=== PATIENT | male | born 1955 | race Caucasian/White ===

== ENCOUNTER 2021-06-27 09:46 | Inpatient (IN) ==
[2021-06-27] MEDS ORDERED: 0.9 % SODIUM CHLORIDE 1,000 ML IV ONE ×2 (10:02)
--- NOTE | 2021-06-27 10:19 | Emergency Department Note ---
HPI General Chief complaint: Weakness Stated complaint: weakness and confision Time Seen by Provider: 06/27/21 09:54 Source: patient Mode of arrival: wheelchair Limitations: no limitations History of Present Illness HPI Narrative: Patient is a 65-year-old gentleman who arrives the emergency department by private vehicle accompanied by his complaining of confusion. History is provided by the with some supplemental information from the patient and is somewhat limited due to the patient's mental status. Patient's notes that he has been increasingly confused since yesterday. This was gradual in onset has been progressively worsening. He has had similar symptoms in the past due to hepatic encephalopathy. The patient's notes that he has been taking his medications as prescribed and had 2 bowel movements yesterday after taking lactulose. This morning, he was too confused to take his me dications so she brought him in for. Nothing seems to make the symptoms any better or worse. Related Data Home Medications Medication Instructions Recorded Confirmed multivitamin 1 tab PO QAM 11/23/20 05/16/21 dorzolamide 22.3 mg-timolol 6.8 ml OPHTHALMIC (EYE) QDAY ml 02/22/21 05/16/21 mg/mL eye drops omeprazole 20 mg capsule,delayed 20 mg PO BID cap 02/22/21 05/16/21 release prednisolone acetate 1 % eye 1 drp OPHTHALMIC (EYE) BID ml 02/22/21 05/16/21 drops,suspension lactulose 10 gram/15 mL oral 15 ml PO TID ml 05/16/21 05/16/21 solution Previous Rx's Medication Instructions Recorded nitroglycerin 0.4 mg sublingual 0.4 mg SUBLINGUAL Q5MIN PRN #30 tab 09/30/19 tablet ondansetron HCl 4 mg tablet 4 mg PO Q6H PRN #30 tab 06/12/21 Allergies Allergy/AdvReac Type Severity Reaction Status Date / Time No Known Drug Allergies Allergy Verified 05/28/21 13:14 Review of Systems ROS ROS Narrative: Narrative: Limitations: ROS unobtainable due to patients medical condition PFSH Narrative Patient History Narrative: Narrative: Medical/Surgical/Family History All Active Problems (Updated 06/27/21 @ 13:59 by Jb Coyne DO) Encephalopathy, hepatic (Acute) Abnormal laboratory test (Acute) S/P TIPS (transjugular intrahepatic portosystemic shunt) (Acute) Alcoholic cirrhosis of liver (Acute) Encounter for removal of sutures (Acute) CAD (coronary artery disease) (Chronic) Hyperlipidemia (Chronic) Lupus (systemic lupus erythematosus) (Acute) Renal cyst (Chronic 02/02/15) Renal mass (Chronic 12/18/14) Skin disorder (Chronic) Vitamin D deficiency (Chronic 02/02/15) Encounter for long-term (current) use of high-risk medication (Acute) Polyarthralgia (Acute) Hypoalbuminemia (Chronic) Nausea (Acute) Weight loss (Acute) Lower extremity weakness (Acute ~03/2020) Fall (Acute) Bilateral lower extremity edema (Chronic) Malnutrition (Acute) Elevated liver enzymes (Acute) Elevated liver enzymes (Chronic) Ascites (Acute) Acute renal failure (Acute) Hypotension (Chronic) Elevated brain natriuretic peptide (BNP) level (Acute) Sacroiliac strain (Acute) Medicare annual wellness visit, initial (Acute) Poor appetite (Chronic) Cachexia (Acute) Viral gastroenteritis (Acute) Anemia (Acute) End-stage liver disease (Acute) CKD stage G4/A1, GFR 15-29 and albumin creatinine ratio <30 mg/g (Chronic) Meralgia paresthetica of right side (Acute) Nausea & vomiting (Acute) Ascites (Acute) Acute prerenal azotemia (Acute) CKD (chronic kidney disease) (Acute) Incarcerated hernia (Acute) SBO (small bowel obstruction) (Acute) Chronic liver failure (Acute) Incarcerated umbilical hernia (Acute) CKD stage G3b/A1, GFR 30-44 and albumin creatinine ratio <30 mg/g (Acute) Electrolyte abnormality (Acute) Medical History Alcoholic cirrhosis of liver Bilateral lower extremity edema Improved with serial paracentesis Cachexia CAD (coronary artery disease) 2012 two stents inserted Chest pain CKD (chronic kidney disease) Contusion Elevated liver enzymes Elevated liver enzymes Seems limited to the alkaline phosphatase. 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 must admit this is not the typical presentation of advanced liver disease. SAAG is 1.9, echo is preserved LV function and no restrictive physiology, cytology is negative on the ascites fluid, therefore I believe this to be ascites due to portal hypertension. Holding diuretics due to the worsening GFR which seems to have leveled off at around 20 to 25 cc/min Hypokalemia Either due to cirrhotic physiology or drug-induced from loop diuretics Incarcerated umbilical hernia Lower extremity weakness (~03/2020) Proximal lower extremity weakness- Lupus (systemic lupus erythematosus) Cutaneous manifestations mostly Malnutrition Medicare annual wellness visit, initial Meralgia paresthetica of right side Nausea Polyarthralgia Poor appetite Trial of Reglan by PCP Premier protein supplements suggested Rash and nonspecific skin eruption Renal cyst (02/02/15) per ultrasound Renal mass (12/18/14) Rhabdomyolysis (02/02/15) Shoulder strain Skin disorder Stasis dermatitis of both legs Vitamin D deficiency (02/02/15) Weight loss Surgical History H/O knee surgery Repair Left knee H/O varicose vein ligation and stripping History of esophagogastroduodenoscopy (~11/11/19) Dr. Moran History of umbilical hernia repair (02/02/21) Hx of right coronary artery stent placement Drug coated stents placed in right coronary artery S/P colonoscopy (11/11/19) TA; 10/31/16; 02/27/17 S/P TIPS (transjugular intrahepatic portosystemic shunt) Family History Mother Osteoarthritis Social History Smoking Status: Current some day smoker Alcohol Intake Frequency: former alcohol drinker Substance Use: former substance user Exam Narrative Narrative: I reviewed the vital signs. Gen -patient is drowsy and arousable to brisk verbal stimuli and in no acute distress. He appears quite cachectic HEENT -head is atraumatic. There is no conjunctival pallor or scleral icterus. Mucous membranes are dry CV -S1-S2 regular rate and rhythm. Peripheral pulses are palpable. There is no JVD. Resp -breathing is nonlabored. Lungs are clear to auscultation bilaterally. There is no cyanosis. GI - Abdomen is soft and nontender to palpation. There is no guarding or rebound tenderness. Derm -skin is warm and dry. There is no visible rash. MSK -present extremities are atraumatic. Psych - the patient does not appear internally stimulated. Neuro -patient provides simple and slightly confused answers to questions. He is oriented to person and situation but disoriented to the year. He does not follow commands consistently. Patient moves all present extremities equally. General Limitations: no limitations Course Vital Signs Vital signs: Vital Signs Temperature 97.8 F 06/27/21 09:47 Pulse Rate 59 L 06/27/21 09:47 Respiratory Rate 16 06/27/21 09:47 Blood Pressure 127/68 06/27/21 09:47 Pulse Oximetry (%) 100 06/27/21 09:47 Temperature 97.8 F 06/27/21 09:47 Pulse Rate 72 06/27/21 13:46 Respiratory Rate 15 06/27/21 13:46 Blood Pressure 136/88 06/27/21 13:46 Pulse Oximetry (%) 100 06/27/21 13:46 [facility] Narrative Medical decision making narrative: Patient presents with altered mental status. He has no focal neurologic deficits to suggest an acute ischemic stroke. Labs are remarkable for no significant electrolyte or hematologic derangements. CT scan does not reveal any intracranial hemorrhage. Patient does have a known history of hepatic encephalopathy and his symptoms seem consistent with this. I personally performed interpreted limited bedside ultrasound of the patient's abdomen. There is no significant free intraperitoneal fluid would be amenable to paracentesis. Given this lack of leukocytosis and lack of fever I do not think the patient has spontaneous bacterial peritonitis. I discussed the test results with the patient and his and recommended admission for further treatment of his hepatic encephalopathy and they are agreeable. I discussed the patient's history examination and diagnostic findings with Dr. Cristobal, who agrees with the plan of care and accepts admission. Lab Data Lab results reviewed: Yes I reviewed the patient's lab results. Result diagrams: 06/27/21 10:03 06/27/21 10:03 Labs: Lab Results 06/27/21 06/27/21 06/27/21 Range/Units 09:56 10:03 10:03 WBC 7.8 (4.5-11.0) K/mcL RBC 3.35 L (4.63-6.08) M/mcL Hgb 10.7 L (13.7-17.5) g/dL Hct 31.8 L (40.1-51.0) % MCV 94.9 (80.0-100.0) fL MCH 31.9 (26.0-34.0) pg MCHC 33.6 (31.0-36.0) g/dL RDW 12.7 (11.5-14.5) % Plt Count 276 (140-440) K/mcL MPV 9.7 (7.4-10.4) fL Neut % (Auto) 59.0 (38.0-78.0) % Lymph % (Auto) 29.2 (15.5-49.0) % Mason % (Auto) 6.5 (1.0-12.0) % Eos % (Auto) 4.3 (0.0-7.0) % Baso % (Auto) 1.0 (0.0-2.0) % Lymph # (Auto) 2.29 (1.50-4.80) K/mcL Mason # (Auto) 0.51 (0.10-0.90) K/mcL Eos # (Auto) 0.34 (0.00-0.70) K/mcL Baso # (Auto) 0.08 (0.00-0.30) K/mcL Absolute Neutrophils 4.61 (1.80-8.00) K/mcL PT 13.2 (11.9-14.5) sec INR 1.0 (0.9-1.1) Sodium (133-145) mmol/L Potassium (3.3-5.1) mmol/L Chloride (96-108) mmol/L Carbon Dioxide (22-30) mmol/L Anion Gap (8.0-16.0) BUN (8-23) mg/dL Creatinine (0.7-1.2) mg/dL GFR Calculation Glucose (70-105) mg/dL Calcium (8.6-10.4) mg/dL Total Bilirubin (0.1-1.0) mg/dL AST (<40) U/L ALT (<40) U/L Alkaline Phosphatase (39-117) U/L Ammonia (16-60) umol/L Total Protein (5.9-8.4) gm/dL Albumin (3.2-5.2) gm/dL Globulin (2.2-3.7) gm/dL Albumin/Globulin Ratio (1.0-2.3) Urine Color Urine Appearance (Clear) Urine pH (5.0-9.0) Ur Specific [place] (1.000-1.035) Urine Protein (Negative) mg/dL Urine Glucose (UA) (Negative) mg/dL Urine Ketones (Negative) mg/dL Urine Occult Blood (Negative) shayy/mcL Urine Nitrate (Negative) Urine Bilirubin (Negative) mg/dL Urine Urobilinogen mg/dL Ur Leukocyte Esterase (Negative) /uL Ur Culture Indicated? Ethyl Alcohol < 0.010 (<0.010) gm/dL 06/27/21 06/27/21 06/27/21 Range/Units 10:03 11:08 11:30 WBC (4.5-11.0) K/mcL RBC (4.63-6.08) M/mcL Hgb (13.7-17.5) g/dL Hct (40.1-51.0) % MCV (80.0-100.0) fL MCH (26.0-34.0) pg MCHC (31.0-36.0) g/dL RDW (11.5-14.5) % Plt Count (140-440) K/mcL MPV (7.4-10.4) fL Neut % (Auto) (38.0-78.0) % Lymph % (Auto) (15.5-49.0) % Mason % (Auto) (1.0-12.0) % Eos % (Auto) (0.0-7.0) % Baso % (Auto) (0.0-2.0) % Lymph # (Auto) (1.50-4.80) K/mcL Mason # (Auto) (0.10-0.90) K/mcL Eos # (Auto) (0.00-0.70) K/mcL Baso # (Auto) (0.00-0.30) K/mcL Absolute Neutrophils (1.80-8.00) K/mcL PT (11.9-14.5) sec INR (0.9-1.1) Sodium 133 (133-145) mmol/L Potassium 4.5 (3.3-5.1) mmol/L Chloride 103 (96-108) mmol/L Carbon Dioxide 17 L (22-30) mmol/L Anion Gap 13.0 (8.0-16.0) BUN 54 H (8-23) mg/dL Creatinine 1.4 H (0.7-1.2) mg/dL GFR Calculation 51 Glucose 118 H (70-105) mg/dL Calcium 9.6 (8.6-10.4) mg/dL Total Bilirubin 0.2 (0.1-1.0) mg/dL AST 28 (<40) U/L ALT 28 (<40) U/L Alkaline Phosphatase 87 (39-117) U/L Ammonia 179 H (16-60) umol/L Total Protein 7.2 (5.9-8.4) gm/dL Albumin 3.9 (3.2-5.2) gm/dL Globulin 3.3 (2.2-3.7) gm/dL Albumin/Globulin Ratio 1.2 (1.0-2.3) Urine Color Yellow Urine Appearance Clear (Clear) Urine pH 6.5 (5.0-9.0) Ur Specific [place] 1.020 (1.000-1.035) Urine Protein Negative (Negative) mg/dL Urine Glucose (UA) Negative (Negative) mg/dL Urine Ketones Trace A (Negative) mg/dL Urine Occult Blood Negative (Negative) shayy/mcL Urine Nitrate Negative (Negative) Urine Bilirubin Negative (Negative) mg/dL Urine Urobilinogen Normal mg/dL Ur Leukocyte Esterase Negative (Negative) /uL Ur Culture Indicated? No Ethyl Alcohol (<0.010) gm/dL ED POC Tests ED POC Tests: PHILIPPE - SARS Antigen Negative EKG Data EKG #1: EKG attestation: Yes I reviewed and interpreted this EKG. EKG results narrative: EKG performed at 10:15 AM: Sinus rhythm, rate 59. Normal P wave and QRS morphology. T waves appear diffusely peaked. No ST segment deviation. Normal [place] QRS and QTc duration. No old EKG immediately available for comparison. EKG was interpreted by me. 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/PA only: No Clinical Impression: Encephalopathy, hepatic Patient Disposition: Xfer As Inpt ([facility]) Follow up with: Marco Harper MD [Primary Care Provider] - Prescriptions: No Action nitroglycerin 0.4 mg tablet, sublingual 0.4 mg SUBLINGUAL Q5MIN PRN (Reason: chest pain) Qty: 30 RF: 3 ondansetron HCl [Zofran] 4 mg tablet 4 mg PO Q6H PRN (Reason: nausea and vomiting) Qty: 30 RF: 0 omeprazole 20 mg capsule,delayed release(DR/EC) 20 mg PO BID RF: 0 lactulose 10 gram/15 mL solution 15 ml PO TID RF: 0 multivitamin Tablet 1 tab PO QAM RF: 0 prednisolone acetate 1 % drops,suspension 1 drp ophthalmic (eye) BID RF: 0 dorzolamide-timolol 22.3-6.8 mg/mL drops ophthalmic (eye) QDAY RF: 0
--- NOTE | 2021-06-27 10:34 | XRay Report ---
HISTORY: Pneumonia, increased weakness and confusion FINDINGS: The lungs are clear without evidence of pneumonia or air trapping. There is a stable small parenchymal scar above the left diaphragm. The heart size and pulmonary vascular normal. The mediastinum and hilar normal. There are old fractures posterolaterally in the right sixth and posteriorly and left seventh ribs. There has been no change since 05/28/21. IMPRESSION: No evidence of pneumonia or acute abnormality Interpreted and Authenticated by: Preston Fuentes 06/27/21
--- NOTE | 2021-06-27 10:53 | Cat Scan Report ---
History: Increased weakness and confusion, evaluate for subdural hematoma TECHNIQUE: The brain was imaged without contrast in axial plane at 2.5 mm intervals. FINDINGS: There is no intracranial hemorrhage or subdural fluid collection. Mild generalized cerebral atrophy is present. The ventricles are prominent but proportionate to the atrophy. There is asymmetric dilatation of the frontal horn of the right lateral ventricle due to an old infarct in the adjacent anterior aspect of the right davis radiata. Measures approximately 1 cm in size. There is another smaller old infarct along the inferior border of the right thalamus near the hypothalamus. It measures 5 mm. Patchy areas of decreased attenuation are present in the centrum semiovale in the frontal and parietal lobes bilaterally. No cortical infarct is detected. There is an implant in the right orbit, superior and lateral to the globe in the general location of the lacrimal gland. 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 No subdural hematoma or evidence of acute abnormality Age-related degenerative changes Dr. Coyne was called with the report Interpreted and Authenticated by: Preston Fuentes 06/27/21
[2021-06-27 11:00] LABS: Basophils # (Auto) 0.08 K/mcL (0.00-0.30); Eosinophils # (Auto) 0.34 K/mcL (0.00-0.70); Eosinophils % (Auto) 4.3 % (0.0-7.0); Hematocrit 31.8 % (40.1-51.0); Hemoglobin 10.7 g/dL (13.7-17.5); Lymphocytes # (Auto) 2.29 K/mcL (1.50-4.80); Lymphocytes % (Auto) 29.2 % (15.5-49.0); Mean Cell Volume 94.9 fL (80.0-100.0); Mean Corpuscular HGB Conc 33.6 g/dL (31.0-36.0); Mean Platelet Volume 9.7 fL (7.4-10.4); Monocytes # (Auto) 0.51 K/mcL (0.10-0.90); Monocytes % (Auto) 6.5 % (1.0-12.0); Platelet Count 276 K/mcL (140-440); RBC 3.35 M/mcL (4.63-6.08); Red Cell Distribution Width 12.7 % (11.5-14.5); WBC 7.8 K/mcL (4.5-11.0)
[2021-06-27 11:22] LABS: Alcohol, Blood < 10.0 mg/dL; Alcohol,Blood < 0.010 gm/dL (<0.010)
[2021-06-27 11:24] LABS: ALT/SGPT 28 U/L (<40); AST/SGOT 28 U/L (<40); Albumin 3.9 gm/dL (3.2-5.2); Albumin/Globulin Ratio 1.2 (1.0-2.3); Alkaline Phosphatase 87 U/L (39-117); Bilirubin,Total 0.2 mg/dL (0.1-1.0); Blood Urea Nitrogen 54 mg/dL (8-23); Calcium 9.6 mg/dL (8.6-10.4); Carbon Dioxide 17 mmol/L (22-30); Chloride 103 mmol/L (96-108); Globulin 3.3 gm/dL (2.2-3.7); Glomerular Filtration Rate 51; Glucose 118 mg/dL (70-105); Prothrombin Time 13.2 sec (11.9-14.5)
[2021-06-27 13:20] LABS: Appearance,Urine Clear (Clear); Bilirubin,Urine Negative (Negative); Color,Urine Yellow; Culture Indicated,Urine No; Glucose,Urine (UA) Negative (Negative); Ketones,Urine Trace mg/dL (Negative); Leukocyte Esterase,Urine Negative /uL (Negative); Nitrate,Urine Negative (Negative); PH,Urine 6.5 (5.0-9.0); Protein,Urine Negative (Negative); Urine Blood Negative ery/mcL (Negative); Urobilinogen,Urine Normal
[2021-06-27] MEDS ORDERED: LACTULOSE 20 GM/30 ML ORAL.SOL PO ONE (13:25)
[2021-06-27] MEDS ORDERED: HALOPERIDOL LACTATE 5 MG/ML VIAL IV PRN ×3 (14:28→19:09)
--- NOTE | 2021-06-27 14:28 | Internal Med History&Physical ---
HPI History of Present Illness Patient information: Note initiated : 06/27/21 at 2:25 pm Service Date, if different from initiated Date: [] Patient: Jermaine Kruger a 65 y/o M admitted on for weakness and confision. Chief Complaint: [hepatic encephalopathy] History of present illness: Mr. Kruger is a 65 year old M history of cirrhosis, chronic kidney disease stage III, presenting with 3-day history of altered mental status. According to the who lives with the patient and who is the career and transition teacher, patient has been increasingly somnolent, confused, altered mental status over the past 3 days, especially today. Today he was so confused and we ak to the point that he could not even get out of bed or take any medications. As a result, she called EMS to send patient to our ER for further evaluation and treatments. History limited by patient's clinical situation as well as the absence of family at bedside. Vital signs within normal limits and patient has been afebrile. Labs significant for lack of leukocytosis with WBC 7.8. Serum creatinine level 1.4, at around his baseline. Serum ammonia level 179, increased from 137 a month ago. Urine analysis does not suggest the presence of urinary tract infections. Chest x-ray was clear no sign of pneumonia or any other intrathoracic pathologies. CT head without contrast showed no acute intracranial changes. Review of Systems ROS unobtainable: due to mental status PFSH PFSH All Active Problems (Updated 06/27/21 @ 14:30 by Vernon Cristobal MD) Anemia of chronic renal failure, stage 3 (moderate) (Acute) Encephalopathy, hepatic (Acute) Abnormal laboratory test (Acute) S/P TIPS (transjugular intrahepatic portosystemic shunt) (Acute) Alcoholic cirrhosis of liver (Acute) Encounter for removal of sutures (Acute) CAD (coronary artery disease) (Chronic) Hyperlipidemia (Chronic) Lupus (systemic lupus erythematosus) (Acute) Renal cyst (Chronic 02/02/15) Renal mass (Chronic 12/18/14) Skin disorder (Chronic) Vitamin D deficiency (Chronic 02/02/15) Encounter for long-term (current) use of high-risk medication (Acute) Polyarthralgia (Acute) Hypoalbuminemia (Chronic) Nausea (Acute) Weight loss (Acute) Lower extremity weakness (Acute ~03/2020) Fall (Acute) Bilateral lower extremity edema (Chronic) Malnutrition (Acute) Elevated liver enzymes (Acute) Elevated liver enzymes (Chronic) Ascites (Acute) Acute renal failure (Acute) Hypotension (Chronic) Elevated brain natriuretic peptide (BNP) level (Acute) Sacroiliac strain (Acute) Medicare annual wellness visit, initial (Acute) Poor appetite (Chronic) Cachexia (Acute) Viral gastroenteritis (Acute) Anemia (Acute) End-stage liver disease (Acute) CKD stage G4/A1, GFR 15-29 and albumin creatinine ratio <30 mg/g (Chronic) Meralgia paresthetica of right side (Acute) Nausea & vomiting (Acute) Ascites (Acute) Acute prerenal azotemia (Acute) CKD (chronic kidney disease) (Acute) Incarcerated hernia (Acute) SBO (small bowel obstruction) (Acute) Chronic liver failure (Acute) Incarcerated umbilical hernia (Acute) CKD stage G3b/A1, GFR 30-44 and albumin creatinine ratio <30 mg/g (Acute) Electrolyte abnormality (Acute) Medical History Alcoholic cirrhosis of liver Bilateral lower extremity edema Improved with serial paracentesis Cachexia CAD (coronary artery disease) 2012 two stents inserted Chest pain CKD (chronic kidney disease) Contusion Elevated liver enzymes Elevated liver enzymes Seems limited to the alkaline phosphatase. 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 must admit this is not the typical presentation of advanced liver disease. SAAG is 1.9, echo is preserved LV function and no restrictive physiology, cytology is negative on the ascites fluid, therefore I believe this to be ascites due to portal hypertension. Holding diuretics due to the worsening GFR which seems to have leveled off at around 20 to 25 cc/min Hypokalemia Either due to cirrhotic physiology or drug-induced from loop diuretics Incarcerated umbilical hernia Lower extremity weakness (~03/2020) Proximal lower extremity weakness- Lupus (systemic lupus erythematosus) Cutaneous manifestations mostly Malnutrition Medicare annual wellness visit, initial Meralgia paresthetica of right side Nausea Polyarthralgia Poor appetite Trial of Reglan by PCP Premier protein supplements suggested Rash and nonspecific skin eruption Renal cyst (02/02/15) per ultrasound Renal mass (12/18/14) Rhabdomyolysis (02/02/15) Shoulder strain Skin disorder Stasis dermatitis of both legs Vitamin D deficiency (02/02/15) Weight loss Surgical History H/O knee surgery Repair Left knee H/O varicose vein ligation and stripping History of esophagogastroduodenoscopy (~11/11/19) Dr. Moran History of umbilical hernia repair (02/02/21) Hx of right coronary artery stent placement Drug coated stents placed in right coronary artery S/P colonoscopy (11/11/19) TA; 10/31/16; 02/27/17 S/P TIPS (transjugular intrahepatic portosystemic shunt) Family History Mother Osteoarthritis Social History (Updated 12/23/19 @ 08:12 by Marco Harper MD) marital status: education level: high school occupation: Works at [employer] alcohol intake frequency: former alcohol drinker substance use type: former substance user MEDS/ALLERGIES Home Medications and Allergies Home Medications Medication Instructions Recorded Confirmed Type nitroglycerin 0.4 mg sublingual 0.4 mg SUBLINGUAL Q5MIN PRN #30 tab 09/30/19 06/27/21 Rx tablet multivitamin 1 tab PO QAM 11/23/20 06/27/21 History dorzolamide 22.3 mg-timolol 6.8 1 ml OPHTHALMIC (EYE) QDAY ml 02/22/21 05/16/21 History mg/mL eye drops omeprazole 20 mg capsule,delayed 20 mg PO BID cap 02/22/21 06/27/21 History release prednisolone acetate 1 % eye 1 drp OPHTHALMIC (EYE) BID ml 02/22/21 06/27/21 History drops,suspension lactulose 10 gram/15 mL oral 60 ml PO TID ml 05/16/21 05/16/21 History solution ondansetron HCl 4 mg tablet 4 mg PO Q6H PRN #30 tab 06/12/21 06/27/21 Rx Allergies Allergy/AdvReac Type Severity Reaction Status Date / Time No Known Drug Allergies Allergy Verified 05/28/21 13:14 EXAM Constitutional Vitals: Temp Pulse Resp BP Pulse Ox 36.6 C 75 12 134/97 99 06/27/21 09:47 06/27/21 14:01 06/27/21 14:16 06/27/21 14:16 06/27/21 14:01 General appearance: disheveled and no acute distress; no cooperative Head Head exam: Present atraumatic and normocephalic Eye Eye exam: Present EOMI and PERRL ENT ENT exam: Present mucous membranes moist, normal exam and normal external ear exam Neck Neck exam: Present normal inspection; Absent lymphadenopathy, tenderness and thyromegaly Respiratory Respiratory exam: Absent accessory muscle use, respiratory distress and wheezes Cardiovascular Cardiovascular exam: Present normal rate and rhythm; Absent JVD GI/Abdominal GI/Abdominal exam: Present normal bowel sounds, soft, distended and organomegaly; Absent diminished bowel sounds, guarding, hypoactive bowel sounds, mass, rebound and tenderness Rectal Rectal exam: Present deferred Extremities Exam Extremities exam: Present full ROM, normal capillary refill and normal inspection; Absent tenderness Neurological Exam Neurological exam: Present alert and CN II-XII intact; Absent motor sensory deficit and oriented X3 Additional comments: oriented X1 to person only Psychiatric Psychiatric exam: Present normal affect and normal mood; Absent anxious and depressed Skin Skin exam: Present dry and intact DATA Data Completed and Pending Labs: Labs from last 24 hours 06/27/21 06/27/21 06/27/21 11:30 11:08 10:03 WBC RBC Hgb Hct MCV MCH MCHC RDW Plt Count MPV Neut % (Auto) Lymph % (Auto) [place] % (Auto) Eos % (Auto) Baso % (Auto) Lymph # (Auto) [place] # (Auto) Eos # (Auto) Baso # (Auto) Absolute Neutrophils PT INR Sodium 133 Potassium 4.5 Chloride 103 Carbon Dioxide 17 L Anion Gap 13.0 BUN 54 H Creatinine 1.4 H GFR Calculation 51 Glucose 118 H Calcium 9.6 Total Bilirubin 0.2 AST 28 ALT 28 Alkaline Phosphatase 87 Ammonia 179 H Total Protein 7.2 Albumin 3.9 Globulin 3.3 Albumin/Globulin Ratio 1.2 Urine Color Yellow Urine Appearance Clear Urine pH 6.5 Ur Specific [place] 1.020 Urine Protein Negative Urine Glucose (UA) Negative Urine Ketones Trace A Urine Occult Blood Negative Urine Nitrate Negative Urine Bilirubin Negative Urine Urobilinogen Normal Ur Leukocyte Esterase Negative Ur Culture Indicated? No Ethyl Alcohol 06/27/21 06/27/21 06/27/21 10:03 10:03 09:56 WBC 7.8 RBC 3.35 L Hgb 10.7 L Hct 31.8 L MCV 94.9 MCH 31.9 MCHC 33.6 RDW 12.7 Plt Count 276 MPV 9.7 Neut % (Auto) 59.0 Lymph % (Auto) 29.2 [place] % (Auto) 6.5 Eos % (Auto) 4.3 Baso % (Auto) 1.0 Lymph # (Auto) 2.29 [place] # (Auto) 0.51 Eos # (Auto) 0.34 Baso # (Auto) 0.08 Absolute Neutrophils 4.61 PT 13.2 INR 1.0 Sodium Potassium Chloride Carbon Dioxide Anion Gap BUN Creatinine GFR Calculation Glucose Calcium Total Bilirubin AST ALT Alkaline Phosphatase Ammonia Total Protein Albumin Globulin Albumin/Globulin Ratio Urine Color Urine Appearance Urine pH Ur Specific [place] Urine Protein Urine Glucose (UA) Urine Ketones Urine Occult Blood Urine Nitrate Urine Bilirubin Urine Urobilinogen Ur Leukocyte Esterase Ur Culture Indicated? Ethyl Alcohol < 0.010 A/P Assessment and plan (1) Encephalopathy, hepatic: Status: Acute (2) CKD stage G3b/A1, GFR 30-44 and albumin creatinine ratio <30 mg/g: Status: Acute (3) Anemia of chronic renal failure, stage 3 (moderate): Status: Acute Narrative A/P Narrative: Assessment and Plans: 1. Hepatic encephalopathy: Admit to inpatient PCU Neuro chek q2hr Haldol 2mg IV q4hr PRN agitation NPO with NS@100cc/hr for now to avoid Speech therapy swallowing evaluation Physical therapy Occupational therapy Lactulose AK for now, okay to switch back to PO when cleared by SLT No need to trend serum ammonia level instead focus on clinical well-being CMP in the AM to trend liver functions 2. Chronic kidney disease stage 3: Avoid nephrotoxic agents NS@100cc/hr CMP in the AM to trend kidney functions 3. Anemia in CKD3: CBC with auto differential in the morning to trend H&H; transfuse PRBC if hemoglobin less than 7.0, active bleeding, or if patient becomes symptomatic GI prophylaxis: IV PPI DVT prophylaxis: Heparin CODE STATUS: Full code Prognosis: Guarded Disposition: Inpatient PCU Time Spent With Patient Time: Total time spent is greater than 50% in coordination of care (as documented) at patient's floor/unit and/or counseling patient: Total time spent with greater than 50% in coordination of care (as documented) at patient's floor/unit and/or counseling patient:: Greater than 35 minutes
[2021-06-27] MEDS ORDERED: ACETAMINOPHEN 325 MG TABLET PO PRN (15:33)
[2021-06-27] MEDS ORDERED: ONDANSETRON 4 MG/2 ML VIAL IV PRN (15:33)
[2021-06-27] MEDS ORDERED: IPRATROPIUM/ALBUTEROL 3 ML AMPUL.NEB NEB PRN (15:33)
[2021-06-27] MEDS: 0.9 % SODIUM CHLORIDE 1,000 ML IV SCH (16:00)
[2021-06-27 18:00] LABS: ALT/SGPT 25 U/L (<40); AST/SGOT 25 U/L (<40); Albumin 3.7 gm/dL (3.2-5.2); Albumin/Globulin Ratio 1.2 (1.0-2.3); Alkaline Phosphatase 81 U/L (39-117); Bilirubin,Total 0.3 mg/dL (0.1-1.0); Blood Urea Nitrogen 47 mg/dL (8-23); Calcium 9.2 mg/dL (8.6-10.4); Carbon Dioxide 18 mmol/L (22-30); Chloride 107 mmol/L (96-108); Glomerular Filtration Rate 56; Glucose 113 mg/dL (70-105)
[2021-06-27] MEDS ORDERED: HALOPERIDOL LACTATE 5 MG/ML VIAL IV ONE (19:08)
[2021-06-27] MEDS ORDERED: NICOTINE 21 MG PATCH ONE (19:17)
[2021-06-27] MEDS: NICOTINE 21 MG PATCH TOPICAL SCH (19:18)
[2021-06-27] MEDS ORDERED: HALOPERIDOL LACTATE 5 MG/ML VIAL ONE (19:26)
[2021-06-27] MEDS: LACTULOSE 20 GM/30 ML ORAL.SOL PR SCH (20:28)
[2021-06-27] MEDS: prednisoLONE 1% OPHTH DROPS 1ML BOTTLE OD SCH (20:29)
[2021-06-27] MEDS: HEPARIN 5,000 UNIT/ML VIAL SQ SCH (20:29)
[2021-06-27] MEDS: RIFAXIMIN 550 MG TABLET PO SCH (20:33)
[2021-06-27] MEDS: 0.9 % SODIUM CHLORIDE 10 ML SYRINGE IV SCH (20:35)
[2021-06-27] MEDS ORDERED: prednisoLONE 1% OPHTH DROPS 1ML BOTTLE OD SCH (21:00)
[2021-06-28] MEDS: 0.9 % SODIUM CHLORIDE 1,000 ML IV SCH (02:33)
[2021-06-28] MEDS: 0.9 % SODIUM CHLORIDE 10 ML SYRINGE IV SCH ×6 (03:32→22:00)
[2021-06-28 06:12] LABS: Basophils # (Auto) 0.06 K/mcL (0.00-0.30); Basophils % (Auto) 0.8 % (0.0-2.0); Eosinophils # (Auto) 0.29 K/mcL (0.00-0.70); Eosinophils % (Auto) 3.9 % (0.0-7.0); Hematocrit 29.3 % (40.1-51.0); Hemoglobin 9.3 g/dL (13.7-17.5); Lymphocytes # (Auto) 2.58 K/mcL (1.50-4.80); Lymphocytes % (Auto) 34.6 % (15.5-49.0); Mean Cell Volume 97.7 fL (80.0-100.0); Mean Corpuscular HGB Conc 31.7 g/dL (31.0-36.0); Mean Platelet Volume 9.7 fL (7.4-10.4); Monocytes # (Auto) 0.65 K/mcL (0.10-0.90); Monocytes % (Auto) 8.7 % (1.0-12.0); Platelet Count 238 K/mcL (140-440); Red Cell Distribution Width 12.7 % (11.5-14.5); WBC 7.5 K/mcL (4.5-11.0)
[2021-06-28 06:34] LABS: ALT/SGPT 26 U/L (<40); AST/SGOT 29 U/L (<40); Albumin 3.4 gm/dL (3.2-5.2); Albumin/Globulin Ratio 1.3 (1.0-2.3); Alkaline Phosphatase 73 U/L (39-117); Bilirubin,Total 0.3 mg/dL (0.1-1.0); Blood Urea Nitrogen 37 mg/dL (8-23); Calcium 8.6 mg/dL (8.6-10.4); Carbon Dioxide 15 mmol/L (22-30); Chloride 109 mmol/L (96-108); Globulin 2.6 gm/dL (2.2-3.7); Glomerular Filtration Rate 69; Glucose 93 mg/dL (70-105)
[2021-06-28] MEDS: PANTOPRAZOLE 40 MG VIAL IV SCH (07:14)
--- NOTE | 2021-06-28 08:27 | Internal Med Progress Note ---
SUBJECTIVE Subjective Patient information: Note initiated : 06/28/21 at 8:24 am Service Date, if different from initiated Date: [] Patient: Jermaine Kruger 65 y/o M admitted on 06/27/21 for weakness and confision. Chief Complaint: [hepatic encephalopathy] Interval history: History of present illness: Mr. Kruger is a 65 year old M history of cirrhosis, chronic kidney disease stage III, presenting with 3-day history of altered mental status. According to the who lives with the patient and who is the adult care provider, patient has been increasingly somnolent, confused, altered mental status over the past 3 days, especially today. Today he was so confused and weak to the point that he could not even get out of bed or take any medications. As a result, she called EMS to send patient to our ER for further evaluation and treatments. History limited by patient's clinical situation as well as the absence of family at bedside. Vital signs within normal limits and patient has been afebrile. Labs significant for lack of leukocytosis with WBC 7.8. Serum creatinine level 1.4, at around his baseline. Serum ammonia level 179, increased from 137 a month ago. Urine analysis does not suggest the presence of urinary tract infections. Chest x-ray was clear no sign of pneumonia or any other intrathoracic pathologies. CT head without contrast showed no acute intracranial changes. 06/28: No bowel movement overnight. Mental status improved. Passed nursing bedside swallowing evaluation. Haldol was being administered to keep patient calm o vernight. Patient currently denies any confusion or weakness. Denies any pain or discomfort. Wants to go home. Constitutional Vitals: Vital Signs Temp Pulse Resp BP Pulse Ox 37.0 C 64 12 91/52 100 06/28/21 08:00 06/28/21 08:00 06/28/21 08:00 06/28/21 08:00 06/28/21 08:00 Period Temp Pulse Resp BP Sys/Grewal Pulse Ox Last 24 Hr 36.2 C-37.1 C 55-89 9-16 91-150/49-97 98-100 Intake and Output 06/27/21 06/28/21 06/28/21 21:59 05:59 13:59 Intake Total 1240 1480 Output Total 665 575 Balance 575 905 Weight 55.61 kg Intake & Output: Intake & Output 06/27/21 06/28/21 06/28/21 21:59 05:59 13:59 Intake Total 1240 1480 Output Total 665 575 Balance 575 905 Weight 55.61 kg Intake: Nourishment/Supplement quantity 240 (ml) IV 1000 1000 Sodium Chloride 0.9% 1,000 ml @ 1000 1000 100 mls/hr IV .Q10H LINDA Rx#: [id number] Oral 240 240 Output: Urine Catheter Amount 665 575 Other: Meal Dinner Ice cream Percent of Meal Consumed 25% 100% Feeding Ability Needs Supervision Nourishment/Supplement name Premier Protein Urine Appearance Clear Clear Uretheral ([place]) Clear Urine Color Bright Yellow Bright Yellow Uretheral ([place]) Bright Yellow Urine Odor Normal Normal General appearance: cooperative, disheveled and no acute distress Head Head exam: Present atraumatic and normocephalic Eye Eye exam: Present EOMI and PERRL ENT ENT exam: Present mucous membranes moist, normal exam and normal external ear exam Neck Neck exam: Present normal inspection; Absent lymphadenopathy, tenderness and thyromegaly Respiratory Respiratory exam: Absent accessory muscle use, respiratory distress and wheezes Cardiovascular Cardiovascular exam: Present normal rate and rhythm; Absent JVD GI/Abdominal GI/Abdominal exam: Present normal bowel sounds, soft, distended and organomegaly; Absent mass, rebound and tenderness Rectal Rectal exam: Present deferred Extremities Exam Extremities exam: Present full ROM, normal capillary refill and normal inspection; Absent tenderness Neurological Exam Neurological exam: Present alert, CN II-XII intact and oriented X3; Absent motor sensory deficit Psychiatric Psychiatric exam: Present normal affect and normal mood; Absent anxious and depressed Skin Skin exam: Present dry and intact OBJ DATA Labs CBC & Chem 7: 06/28/21 05:29 06/28/21 05:30 Labs: Abnormal Lab Results 06/28/21 06/28/21 06/28/21 05:30 05:29 05:29 RBC 3.00 L Hgb 9.3 L Hct 29.3 L Chloride 109 H Carbon Dioxide 15 L BUN 37 H Creatinine Glucose Ammonia 96 H Urine Ketones 06/27/21 06/27/21 06/27/21 15:33 11:30 11:08 RBC Hgb Hct Chloride Carbon Dioxide 18 L BUN 47 H Creatinine 1.3 H Glucose 113 H Ammonia 179 H Urine Ketones Trace A 06/27/21 06/27/21 10:03 10:03 RBC 3.35 L Hgb 10.7 L Hct 31.8 L Chloride Carbon Dioxide 17 L BUN 54 H Creatinine 1.4 H Glucose 118 H Ammonia Urine Ketones Meds: Medications Acetaminophen (Acetaminophen 325 Mg Tablet) 650 mg PO Q6HP PRN; Protocol PRN Reason: Per Pain Protocol/Fever > 101 Albuterol/Ipratropium (Ipratropium/Albuterol 3 Ml Ampul.Neb) 3 ml NEB Q4HRT PRN PRN Reason: Wheezing Haloperidol Lactate (Haloperidol Lactate 5 Mg/Ml Vial) 5 mg IV Q4HP PRN PRN Reason: ANXIETY/SEDATION Last Admin: 06/28/21 03:31 Dose: 5 mg Documented by: Heparin Sodium (Porcine) (Heparin 5,000 Unit/Ml Vial) 5,000 unit SQ Q12 PENDING SALE TO [facility] Last Admin: 06/27/21 20:29 Dose: 5,000 unit Documented by: Sodium Chloride (Sodium Chloride 0.9%) 1,000 mls @ 100 mls/hr IV .Q10H PENDING SALE TO [facility] Last Admin: 06/28/21 02:33 Dose: 100 mls/hr Documented by: Lactulose (Lactulose 20 Gm/30 Ml Oral.Alyce) 30 gm WA BID PENDING SALE TO [facility] Last Admin: 06/27/21 20:28 Dose: 30 gm Documented by: Nicotine (Nicotine 21 Mg Patch) 21 mg TOPICAL DAILY@1000 PENDING SALE TO [facility] Last Admin: 06/27/21 19:18 Dose: 21 mg Documented by: Ondansetron HCl (Ondansetron 4 Mg/2 Ml Vial) 4 mg IV Q4HP PRN; Protocol PRN Reason: Nausea And Vomiting Pantoprazole Sodium (Pantoprazole 40 Mg Vial) 40 mg IV ACB PENDING SALE TO [facility] Last Admin: 06/28/21 07:14 Dose: 40 mg Documented by: Dorzolamide 22.3 Mg- Timolol 6.8 Mg Eye Drops 1 dose OD DAILY PENDING SALE TO [facility] Prednisolone Acetate (Prednisolone 1% Ophth Drops 1ml Bottle) 1 gtt OD BID PENDING SALE TO [facility] Last Admin: 06/27/21 20:29 Dose: 1 drop Documented by: Sodium Chloride (0.9 % Sodium Chloride 10 Ml Syringe) 10 ml IV Q8 PENDING SALE TO [facility] Last Admin: 06/28/21 07:14 Dose: 10 ml Documented by: A/P Assessment and plan (1) Encephalopathy, hepatic: Status: Acute (2) CKD stage G3b/A1, GFR 30-44 and albumin creatinine ratio <30 mg/g: Status: Acute (3) Anemia of chronic renal failure, stage 3 (moderate): Status: Acute Narrative A/P Narrative: Assessment and Plans: 1. Hepatic encephalopathy: Stays in inpatient PCU Neuro chek q2hr Haldol 5mg IV q4hr PRN agitation NPO with NS@100cc/hr for now to avoid Physical therapy Occupational therapy Lactulose PO No need to trend serum ammonia level instead focus on clinical well-being CMP in the AM to trend liver functions 2. Chronic kidney disease stage 3: Avoid nephrotoxic agents Okay to saline lock now that patient is tolerating oral intake CMP in the AM to trend kidney functions 3. Anemia in CKD3: CBC with auto differential in the morning to trend H&H; transfuse PRBC if hemoglobin less than 7.0, active bleeding, or if patient becomes symptomatic GI prophylaxis: IV PPI DVT prophylaxis: Heparin CODE STATUS: Full code Prognosis: Guarded Disposition: Inpatient PCU Time Spent With Patient Time: Total time spent is greater than 50% in coordination of care (as documented) at patient's floor/unit and/or counseling patient: QUALITY VTE Deep Vein Thrombosis/Pulmonary Embolism Present on Admission: No
[2021-06-28] MEDS ORDERED: DORZOLAMIDE TIMOLOL OPHTHALMIC SCH (09:00)
[2021-06-28] MEDS: HEPARIN 5,000 UNIT/ML VIAL SQ SCH ×2 (09:40→20:48)
[2021-06-28] MEDS: prednisoLONE 1% OPHTH DROPS 1ML BOTTLE OD SCH ×2 (09:40→20:49)
[2021-06-28] MEDS: NICOTINE 21 MG PATCH TOPICAL SCH (09:40)
[2021-06-28] MEDS: EYE OD SCH (09:41)
[2021-06-28] MEDS: TIMOLOL OD SCH (09:41)
[2021-06-28] MEDS: DORZOLAMIDE OD SCH (09:41)
[2021-06-28] MEDS ORDERED: LACTULOSE 20 GM/30 ML ORAL.SOL PO SCH (10:05)
[2021-06-28] MEDS: RIFAXIMIN 550 MG TABLET PO SCH ×2 (10:21→20:55)
--- NOTE | 2021-06-28 10:41 | EKG ---
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
[2021-06-28] MEDS: LACTULOSE 20 GM/30 ML ORAL.SOL PR SCH (10:52)
[2021-06-28] MEDS: LACTULOSE 20 GM/30 ML ORAL.SOL PO SCH ×3 (12:47→20:48)
[2021-06-29] MEDS: 0.9 % SODIUM CHLORIDE 10 ML SYRINGE IV SCH ×3 (04:55→14:22)
[2021-06-29 05:57] LABS: Hematocrit 27.7 % (40.1-51.0); Hemoglobin 9.5 g/dL (13.7-17.5); Mean Cell Volume 94.2 fL (80.0-100.0); Mean Corpuscular HGB Conc 34.3 g/dL (31.0-36.0); Mean Platelet Volume 9.8 fL (7.4-10.4); Platelet Count 233 K/mcL (140-440); RBC 2.94 M/mcL (4.63-6.08); Red Cell Distribution Width 12.6 % (11.5-14.5); WBC 8.4 K/mcL (4.5-11.0)
[2021-06-29 06:22] LABS: ALT/SGPT 35 U/L (<40); AST/SGOT 37 U/L (<40); Albumin 3.6 gm/dL (3.2-5.2); Albumin/Globulin Ratio 1.4 (1.0-2.3); Alkaline Phosphatase 74 U/L (39-117); Bilirubin,Total 0.2 mg/dL (0.1-1.0); Blood Urea Nitrogen 34 mg/dL (8-23); Calcium 8.8 mg/dL (8.6-10.4); Carbon Dioxide 16 mmol/L (22-30); Chloride 106 mmol/L (96-108); Globulin 2.5 gm/dL (2.2-3.7); Glomerular Filtration Rate 77; Glucose 97 mg/dL (70-105)
[2021-06-29] MEDS: PANTOPRAZOLE 40 MG VIAL IV SCH (07:45)
[2021-06-29] MEDS: TIMOLOL OD SCH (08:25)
[2021-06-29] MEDS: HEPARIN 5,000 UNIT/ML VIAL SQ SCH (08:25)
[2021-06-29] MEDS: LACTULOSE 20 GM/30 ML ORAL.SOL PO SCH ×2 (08:25→12:08)
[2021-06-29] MEDS: NICOTINE 21 MG PATCH TOPICAL SCH (08:25)
[2021-06-29] MEDS: EYE OD SCH (08:25)
[2021-06-29] MEDS: DORZOLAMIDE OD SCH (08:25)
[2021-06-29] MEDS: prednisoLONE 1% OPHTH DROPS 1ML BOTTLE OD SCH (08:25)
[2021-06-29] MEDS: RIFAXIMIN 550 MG TABLET PO SCH (08:30)
--- NOTE | 2021-06-29 09:25 | Discharge Summary ---
Discharge Provider Provider Patient information: Note initiated : 06/29/21 at 9:22 am Service Date, if different from initiated Date: [] Patient: Jermaine Kruger 65 y/o M admitted on 06/27/21 for weakness and confision. Chief Complaint: Encephalopathy Date of admission: 06/27/21 15:27 Discharge date: 06/29/21 Primary care physician: Marco Harper MD Admitting clinician: Vernon Cristobal Consults: 06/27/21 Consult to Physician [CONS] Stat Comment: Consulting Provider: Vernon Critsobal Reason For Exam: Physician to Consult Discharging clinician: Morena Jones Discharge Meds Discharge Medications Home Medications nitroglycerin 0.4 mg sublingual tablet 0.4 mg SUBLINGUAL Q5MIN PRN #30 tab 09/30/19 [Rx Confirmed 06/27/21 Last Taken Unknown] multivitamin 1 tab PO QAM 11/23/20 [History Confirmed 06/27/21 Last Taken Unknown] dorzolamide 22.3 mg-timolol 6.8 mg/mL eye drops 1 ml OPHTHALMIC (EYE) QDAY ml 02/22/21 [History Confirmed 06/27/21 Last Taken Unknown] omeprazole 20 mg capsule,delayed release 20 mg PO BIDAC cap 02/22/21 [History Confirmed 06/27/21 Last Taken Unknown] prednisolone acetate 1 % eye drops,suspension 1 drp OPHTHALMIC (EYE) BID ml 02/22/21 [History Confirmed 06/27/21 Last Taken Unknown] lactulose 10 gram/15 mL oral solution 60 ml PO QID ml 05/16/21 [History Confirmed 06/27/21 Last Taken Unknown] Xifaxan 550 mg PO BID 06/27/21 [History Confirmed 06/27/21 Last Taken Unknown] COURSE Hospital Course Hospital course: Mr. Kruger is a 65 year old M history of cirrhosis, chronic kidney disease stage III, presenting with 3-day history of altered mental status. According to the who lives with the patient and who is the health care recruiter, patient has been increasingly somnolent, confused, altered mental status over the past 3 days, especially today. Today he was so confused and weak to the point that he could not even get out of bed or take any medications. As a result, she called EMS to send patient to our ER for further evaluation and treatments. History limited by patient's clinical situation as well as the absence of family at bedside. Vital signs within normal limits and patient has been afebrile. Labs significant for lack of leukocytosis with WBC 7.8. Serum creatinine level 1.4, at around his baseline. Serum ammonia level 179, increased from 137 a month ago. Urine analysis does not suggest the presence of urinary tract infections. Chest x-ray was clear no sign of pneumonia or any other intrathoracic pathologies. CT head without contrast showed no acute intracranial changes. 06/28: No bowel movement overnight. Mental status improved. Passed nursing bedside swallowing evaluation. Haldol was being administered to keep patient calm overnight. Patient currently denies any confusion or weakness. Denies any pain or discomfort. Wants to go home. 06/29: Tolerating lactulose and rifaximin, having bowel movements. Ambulating on the unit. Patient is alert, oriented to self, situation, has no asterixis. Discussed with his , Lila on the phone, he appears to be close to his baseline prior to decompensation. He will be discharged home, continuing on his usual home medication regimen. It appears he had been out of lactulose for at least a day prior to presentation, which was in the setting of some worsening confusion prior to running out of lactulose at home. His now has an adequate supply. There was some discussion of possible discharge to hospice. However on the day of discharge, patient has chose home health. PT, OT and bath aide in addition to detention to assess his management of hepatic encephalopathy at home were all ordered. Discharge diagnosis: Hepatic encephalopathy Procedures: None Time Spent with Patient Time attestation: Total time spent providing and/or coordinating discharge services: Time spent: Greater than 30 minutes EXAM Constitutional Vitals: Temp Pulse Resp BP Pulse Ox 97.6 F 71 18 123/68 96 06/29/21 08:00 06/29/21 06:00 06/29/21 02:01 06/29/21 08:00 06/29/21 08:00 General: Awake, alert, sitting up in chair, no acute distress Chest: Clear to auscultation bilaterally Cardiovascular: Regular rate and rhythm Abdomen: Soft, nondistended, active bowel sounds Extremities: No edema Neuro: Alert, oriented to self, place ([facility]), situation ("I was out of it") and is able to recite the date from the white board on the wall when queried about time. He moves all extremities equally. There is no asterixis. He is ambulating on the nursing unit. Discharge Data Data Completed and Pending Labs on day of discharge: Labs from last 24 hours 06/29/21 06/29/21 06/29/21 05:28 05:27 05:27 WBC 8.4 RBC 2.94 L Hgb 9.5 L Hct 27.7 L MCV 94.2 MCH 32.3 MCHC 34.3 RDW 12.6 Plt Count 233 MPV 9.8 Sodium 134 Potassium 4.0 Chloride 106 Carbon Dioxide 16 L Anion Gap 12.0 BUN 34 H Creatinine 1.0 GFR Calculation 77 Glucose 97 Calcium 8.8 Total Bilirubin 0.2 AST 37 ALT 35 Alkaline Phosphatase 74 Ammonia 103 H Total Protein 6.1 Albumin 3.6 Globulin 2.5 Albumin/Globulin Ratio 1.4 Preliminary micro results at discharge 06/27/21 11:12 Blood Culture - Preliminary Blood 06/27/21 11:08 Blood Culture - Preliminary Blood Imaging and Cardiology CT scan - head: Additional comments: IMPRESSION: 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 No subdural hematoma or evidence of acute abnormality Age-related degenerative changes Chest x-ray: Additional comments: No acute findings Discharge Plan Patient/Caregiver Discharge Instructions Activity: increase activity as tolerated Diet: Regular Diet Activity Restrictions/Additional Instructions: Continue to take rifaximin 2 times a day Continue to take lactulose 4 times a day, goal is 3 stools per day Follow-up with Lila Dunne NP Prescriptions: Continued nitroglycerin 0.4 mg tablet, sublingual 0.4 mg SUBLINGUAL Q5MIN PRN (Reason: chest pain) Qty: 30 RF: 3 omeprazole 20 mg capsule,delayed release(DR/EC) 20 mg PO BIDAC RF: 0 lactulose 10 gram/15 mL solution 60 ml PO QID RF: 0 multivitamin Tablet 1 tab PO QAM RF: 0 prednisolone acetate 1 % drops,suspension 1 drp ophthalmic (eye) BID RF: 0 dorzolamide-timolol 22.3-6.8 mg/mL drops 1 ml ophthalmic (eye) QDAY RF: 0 Xifaxan 550 mg tablet 550 mg PO BID RF: 0 Follow Up Plan Follow up with: DunneLila gray ARNP [Nurse Practitioner] - (1-2 weeks) Marco Harper MD [Primary Care Provider] - Patient Disposition: Home Health Service Prognosis: Fair Rehab Potential: Fair I certify that the patient requires SNF services: No Overall status at discharge: patient is progressing back to baseline Discharge Orders: Discharge Order (Routine); Ordered 06/29/21 Ordered By: Morena KLINE VTE Deep Vein Thrombosis/Pulmonary Embolism Present on Admission: No
== END 2021-06-29 12:20 | disposition home health service (06) | DRG 442 ==
LOC: ED 09:46 → ICU 15:27
PROVIDERS: ADMIT Internal Medicine; ATTEND Internal Medicine

== ENCOUNTER 2023-11-28 13:10 | Inpatient (IN) ==
[2023-11-28] MEDS ORDERED: IOPAMIDOL 100 ML BOTTLE IV ONE (13:11)
[2023-11-28] MEDS: ONDANSETRON 4 MG/2 ML VIAL IV ONE (14:00)
[2023-11-28 14:15] LABS: Basophils # (Auto) 0.01 K/mcL (0.00-0.30); Basophils % (Auto) 0.1 % (0.0-2.0); Eosinophils # (Auto) 0 K/mcL (0.00-0.70); Eosinophils % (Auto) 0 % (0.0-7.0); Hematocrit 47.2 % (40.1-51.0); Hemoglobin 15.6 g/dL (13.7-17.5); Lymphocytes # (Auto) 1.37 K/mcL (1.50-4.80); Lymphocytes % (Auto) 12.5 % (15.5-49.0); Mean Cell Volume 92.2 fL (80.0-100.0); Mean Corpuscular HGB Conc 33.1 g/dL (31.0-36.0); Mean Platelet Volume 10.6 fL (8.8-12.5); Monocytes # (Auto) 0.94 K/mcL (0.10-0.90); Monocytes % (Auto) 8.6 % (1.0-12.0); Neutrophils % (Auto) 78.6 % (38.0-78.0); Platelet Count 231 K/mcL (140-440); RBC 5.12 M/mcL (4.63-6.08); Red Cell Distribution Width 13.4 % (11.5-14.5)
[2023-11-28 14:36] LABS: ALT/SGPT < 5 U/L (<40); AST/SGOT 22 U/L (<40); Albumin 4.3 gm/dL (3.2-5.2); Albumin/Globulin Ratio 1.3 (1.0-2.3); Alkaline Phosphatase 94 U/L (39-117); Blood Urea Nitrogen 35 mg/dL (8-23); Calcium 9.5 mg/dL (8.6-10.4); Carbon Dioxide 24 mmol/L (22-30); Chloride 98 mmol/L (96-108); Globulin 3.2 gm/dL (2.2-3.7); Glomerular Filtration Rate 46; Glucose 169 mg/dL (70-105)
[2023-11-28] MEDS: 0.9 % SODIUM CHLORIDE 1,000 ML IV ONE (15:16)
[2023-11-28 17:27] LABS: Appearance,Urine Clear (Clear); Bilirubin,Urine Negative (Negative); Color,Urine Yellow; Culture Indicated,Urine No; Glucose,Urine (UA) Negative (Negative); Ketones,Urine Negative (Negative); Leukocyte Esterase,Urine Negative /uL (Negative); Nitrate,Urine Negative (Negative); PH,Urine 6.5 (5.0-9.0); Protein,Urine >=300 mg/dL (Negative); Specific Gravity,Urine 1.025 (1.000-1.035); Urine Blood Small ery/mcL (Negative); Urine RBC 0 /hpf (0-3); Urine Squamous Epithelial Cell 0 /hpf (0-4); Urine WBC 0 /hpf (0-4); Urobilinogen,Urine Normal
[2023-11-28] MEDS ORDERED: HYDROmorphone 0.5 MG/0.5 ML SYRINGE IV PRN (19:32)
[2023-11-28] MEDS ORDERED: ONDANSETRON 4 MG/2 ML VIAL IV PRN (19:32)
[2023-11-28] MEDS ORDERED: PROMETHAZINE 25 MG/ML VIAL IV PRN (19:38)
[2023-11-28] MEDS: 0.9 % SODIUM CHLORIDE 1,000 ML IV SCH (20:05)
[2023-11-28] MEDS ORDERED: SENNOSIDES 1 TABLET PO SCH (21:00)
[2023-11-28] MEDS ORDERED: DOCUSATE SODIUM 100 MG CAPSULE PO SCH (21:00)
[2023-11-28] MEDS: PIPERACILLIN SODIUM/TAZOBACTAM 3.375 GM in 0.9 % SODIUM CHLORIDE 50 ML IV ONE (21:20)
[2023-11-29] MEDS: PIPERACILLIN SODIUM/TAZOBACTAM 3.375 GM in 0.9 % SODIUM CHLORIDE 100 ML IV SCH (01:01)
[2023-11-29 07:13] LABS: ALT/SGPT 11 U/L (<40); AST/SGOT 34 U/L (<40); Albumin 4.1 gm/dL (3.2-5.2); Albumin/Globulin Ratio 1.4 (1.0-2.3); Alkaline Phosphatase 85 U/L (39-117); Bilirubin,Direct 0.5 mg/dL (<0.3); Bilirubin,Total 1.4 mg/dL (0.1-1.0); Blood Urea Nitrogen 37 mg/dL (8-23); Calcium 8.9 mg/dL (8.6-10.4); Carbon Dioxide 25 mmol/L (22-30); Chloride 100 mmol/L (96-108); Globulin 2.9 gm/dL (2.2-3.7); Glomerular Filtration Rate 46; Glucose 130 mg/dL (70-105); Lactate Dehydrogenase 267 U/L (135-225); Phosphorous 4.4 mg/dL (2.5-4.5); Triglycerides 133 mg/dL (<150); Uric Acid 5.6 mg/dL (2.5-8.0)
[2023-11-29 07:15] LABS: Basophils # (Auto) 0.02 K/mcL (0.00-0.30); Basophils % (Auto) 0.1 % (0.0-2.0); Eosinophils # (Auto) 0.01 K/mcL (0.00-0.70); Eosinophils % (Auto) 0.1 % (0.0-7.0); Lymphocytes % (Auto) 14.4 % (15.5-49.0); Mean Cell Volume 93.9 fL (80.0-100.0); Mean Corpuscular HGB Conc 32.6 g/dL (31.0-36.0); Mean Platelet Volume 10.8 fL (8.8-12.5); Monocytes # (Auto) 1.48 K/mcL (0.10-0.90); Monocytes % (Auto) 10.7 % (1.0-12.0); Neutrophils % (Auto) 74.3 % (38.0-78.0); Platelet Count 236 K/mcL (140-440); Red Cell Distribution Width 13.5 % (11.5-14.5); WBC 13.9 K/mcL (4.5-11.0)
[2023-11-29] MEDS: PANTOPRAZOLE 40 MG VIAL IV SCH (07:28)
[2023-11-29] MEDS ORDERED: KETAMINE 50 MG/ML Syringe IV ONE (08:29)
[2023-11-29] MEDS ORDERED: LIDOCAINE 2% PF 5 ML VIAL ONE (08:30)
[2023-11-29] MEDS ORDERED: PROPOFOL 200 MG/20 ML VIAL IV ONE (08:30)
[2023-11-29] MEDS ORDERED: ROPIVACAINE HCL/PF 30 ML VIAL IJ ONE (08:30)
[2023-11-29] MEDS ORDERED: ROCURONIUM 10 MG/ML ML IV ONE ×2 (08:30→09:50)
[2023-11-29] MEDS ORDERED: fentaNYL 100 MCG/2 ML VIAL ONE (08:30)
[2023-11-29] MEDS ORDERED: MAGNESIUM SULFATE 2 GM/50 ML BAG IV ONE (08:34)
[2023-11-29] MEDS ORDERED: SCOPOLAMINE 1 PATCH PATCH TOPICAL PRN (09:00)
[2023-11-29] MEDS ORDERED: IPRATROPIUM/ALBUTEROL 3 ML AMPUL.NEB NEB PRN ×2 (09:00→10:44)
[2023-11-29] MEDS ORDERED: GLYCOPYRROLATE 0.2 MG/ML VIAL IV ONE (09:43)
[2023-11-29] MEDS ORDERED: DEXAMETHASONE 10 MG/ML VIAL ONE (09:44)
[2023-11-29] MEDS ORDERED: SUGAMMADEX SODIUM 200 MG/2 ML VIAL IV ONE (10:12)
[2023-11-29] MEDS ORDERED: morphine 2 MG/ML VIAL IV PRN (10:44)
[2023-11-29] MEDS ORDERED: fentaNYL 100 MCG/2 ML VIAL IV PRN ×2 (10:44→11:35)
[2023-11-29] MEDS ORDERED: ONDANSETRON 4 MG/2 ML VIAL ONE (10:50)
[2023-11-29] MEDS ORDERED: hydrALAZINE 20 MG/ML VIAL ONE (11:03)
[2023-11-29] MEDS ORDERED: NITROGLYCERIN 0.4 MG TAB.SUBL SL PRN (11:35)
[2023-11-29] MEDS ORDERED: ONDANSETRON 4 MG ODT TABLET PO PRN (11:39)
[2023-11-29] MEDS: METOCLOPRAMIDE 10 MG/2 ML VIAL IV SCH (11:41)
[2023-11-29] MEDS: hydrALAZINE 20 MG/ML VIAL IV PRN (12:39)
[2023-11-29] MEDS: CARBOXYMETHYLCELLULOSE SODIUM 1 EACH DROPER.GEL OP SCH (12:39)
[2023-11-29] MEDS: SODIUM BICARBONATE 650 MG TABLET PO SCH (17:16)
[2023-11-29] MEDS: BRIMONIDINE OPHTH DROPS 1 GTT BOTTLE 5ML OU SCH (21:51)
[2023-11-29] MEDS: Dorzolamide-Timolol 22.3-6.8 mg/mL drops OP SCH (21:51)
[2023-11-29] MEDS: LACTATED RINGERS 1,000 ML IV SCH (23:48)
[2023-11-30 06:36] LABS: Basophils # (Auto) 0.01 K/mcL (0.00-0.30); Basophils % (Auto) 0.1 % (0.0-2.0); Eosinophils # (Auto) 0 K/mcL (0.00-0.70); Eosinophils % (Auto) 0 % (0.0-7.0); Hematocrit 43.7 % (40.1-51.0); Hemoglobin 14.4 g/dL (13.7-17.5); Lymphocytes # (Auto) 3.19 K/mcL (1.50-4.80); Lymphocytes % (Auto) 17.4 % (15.5-49.0); Mean Cell Volume 93.4 fL (80.0-100.0); Monocytes # (Auto) 2.07 K/mcL (0.10-0.90); Monocytes % (Auto) 11.3 % (1.0-12.0); Platelet Count 242 K/mcL (140-440); RBC 4.68 M/mcL (4.63-6.08); Red Cell Distribution Width 13.8 % (11.5-14.5); WBC 18.4 K/mcL (4.5-11.0)
[2023-11-30 07:22] LABS: ALT/SGPT 19 U/L (<40); AST/SGOT 35 U/L (<40); Albumin 3.8 gm/dL (3.2-5.2); Albumin/Globulin Ratio 1.5 (1.0-2.3); Alkaline Phosphatase 71 U/L (39-117); Bilirubin,Direct 0.8 mg/dL (<0.3); Bilirubin,Total 1.5 mg/dL (0.1-1.0); Blood Urea Nitrogen 37 mg/dL (8-23); Calcium 8.1 mg/dL (8.6-10.4); Carbon Dioxide 20 mmol/L (22-30); Chloride 103 mmol/L (96-108); Globulin 2.5 gm/dL (2.2-3.7); Glomerular Filtration Rate 43; Glucose 116 mg/dL (70-105); Lactate Dehydrogenase 252 U/L (135-225); Phosphorous 3.7 mg/dL (2.5-4.5); Triglycerides 112 mg/dL (<150); Uric Acid 4.2 mg/dL (2.5-8.0)
[2023-11-30] MEDS: LATANOPROST OPHTH DROPS 2.5ML BOTTLE OU SCH (07:58)
[2023-11-30] MEDS: LACTULOSE 20 GM/30 ML ORAL.SOL PO SCH (08:01)
[2023-11-30] MEDS: POLYETHYLENE GLYCOL 3350 17 GM PACKET PO SCH (17:42)
[2023-12-01 15:37] VITALS: TEMP 97.9; O2SAT 96
== END 2023-12-01 15:20 | disposition home or self-care (01) | DRG 330 ==
LOC: ED 13:10 → MEDSUR 19:31
PROVIDERS: ADMIT Family Medicine Adult Medicine; ATTEND Family Medicine Adult Medicine

== ENCOUNTER 2024-09-28 18:53 | Inpatient (IN) ==
[2024-09-28] MEDS: LACTULOSE 20 GM/30 ML ORAL.SOL PO ONE (22:19)
[2024-09-28] MEDS: HYDROmorphone 0.5 MG/0.5 ML SYRINGE IV PRN (23:00)
[2024-09-28] MEDS: ONDANSETRON 4 MG/2 ML VIAL IV PRN (23:17)
[2024-09-28] MEDS: 0.9 % SODIUM CHLORIDE 1,000 ML IV SCH (23:18)
[2024-09-28] MEDS: LIDOCAINE 2% URO-JET 10 ML JEL.PF.APP UR ONE (23:18)
[2024-09-29 07:57] LABS: Basophils # (Auto) 0.03 K/mcL (0.00-0.30); Basophils % (Auto) 0.3 % (0.0-2.0); Eosinophils # (Auto) 0.07 K/mcL (0.00-0.70); Eosinophils % (Auto) 0.7 % (0.0-7.0); Hematocrit 32.8 % (40.1-51.0); Hemoglobin 10.9 g/dL (13.7-17.5); Lymphocytes % (Auto) 11.8 % (15.5-49.0); Mean Cell Volume 91.4 fL (80.0-100.0); Mean Corpuscular HGB Conc 33.2 g/dL (31.0-36.0); Monocytes # (Auto) 0.94 K/mcL (0.10-0.90); Monocytes % (Auto) 9.3 % (1.0-12.0); Neutrophils % (Auto) 77.6 % (38.0-78.0); Platelet Count 273 K/mcL (140-440); RBC 3.59 M/mcL (4.63-6.08); Red Cell Distribution Width 13.9 % (11.5-14.5); WBC 10.1 K/mcL (4.5-11.0)
[2024-09-29 08:00] LABS: Prothrombin Time 13.3 sec (11.9-14.5)
[2024-09-29 08:13] LABS: ALT/SGPT 34 U/L (<40); AST/SGOT 52 U/L (<40); Albumin 3.1 gm/dL (3.2-5.2); Alkaline Phosphatase 70 U/L (39-117); Bilirubin,Total 0.6 mg/dL (0.1-1.0); Blood Urea Nitrogen 31 mg/dL (8-23); Calcium 8.3 mg/dL (8.6-10.4); Carbon Dioxide 21 mmol/L (22-30); Chloride 101 mmol/L (96-108); Glomerular Filtration Rate 60; Glucose 121 mg/dL (70-105); Potassium 4.2 mmol/L (3.3-5.1); Sodium 135 mmol/L (133-145)
[2024-09-29 09:24] LABS: Appearance,Urine Clear (Clear); Bilirubin,Urine Negative (Negative); Color,Urine Yellow; Glucose,Urine (UA) Negative (Negative); Ketones,Urine Trace mg/dL (Negative); Leukocyte Esterase,Urine Negative /uL (Negative); Mucus,Urine Few /hpf; Nitrate,Urine Negative (Negative); Protein,Urine 100 mg/dL (Negative); Urine Blood Small ery/mcL (Negative); Urine Hyaline Cast 2 /lph (0-2); Urine RBC 6 /hpf (0-3); Urine Squamous Epithelial Cell 1 /hpf (0-4); Urine WBC 0 /hpf (0-4); Urobilinogen,Urine Normal
[2024-09-29] MEDS ORDERED: HYDROmorphone 1 MG/ML SYRINGE IV PRN (12:36)
[2024-09-29] MEDS ORDERED: ONDANSETRON 4 MG/2 ML VIAL IV PRN (12:36)
[2024-09-29] MEDS ORDERED: LUBRICANT ophthalmic (eye) SCH (12:36)
[2024-09-29] MEDS ORDERED: SENNOSIDES 1 TABLET PO PRN (12:40)
[2024-09-29] MEDS: 0.9 % SODIUM CHLORIDE 10 ML SYRINGE IV SCH (13:07)
[2024-09-29] MEDS: LACTULOSE 20 GM/30 ML ORAL.SOL PO SCH (13:07)
[2024-09-29] MEDS ORDERED: MIDAZOLAM 2 MG/2 ML VIAL ONE (13:29)
[2024-09-29] MEDS ORDERED: PROPOFOL 200 MG/20 ML VIAL IV ONE (13:29)
[2024-09-29] MEDS ORDERED: KETAMINE 50 MG/ML ML ONE (13:30)
[2024-09-29] MEDS ORDERED: LIDOCAINE 2% PF 5 ML VIAL ONE (13:33)
[2024-09-29] MEDS ORDERED: DEXAMETHASONE 10 MG/ML VIAL ONE (13:33)
[2024-09-29] MEDS ORDERED: GLYCOPYRROLATE 0.2 MG/ML VIAL IV ONE (13:33)
[2024-09-29] MEDS ORDERED: ONDANSETRON 4 MG/2 ML VIAL ONE (13:33)
[2024-09-29] MEDS ORDERED: TRANEXAMIC ACID 1,000 MG/10 ML VIAL ONE (13:33)
[2024-09-29] MEDS ORDERED: ceFAZolin 1 GM VIAL ONE (14:19)
[2024-09-29] MEDS ORDERED: HYDROmorphone 0.5 MG/0.5 ML SYRINGE ONE ×2 (14:21→14:23)
[2024-09-29] MEDS ORDERED: HYDROmorphone 0.5 MG/0.5 ML SYRINGE IV PRN (14:30)
[2024-09-29] MEDS ORDERED: IPRATROPIUM/ALBUTEROL 3 ML AMPUL.NEB NEB PRN (14:30)
[2024-09-29] MEDS ORDERED: fentaNYL 100 MCG/2 ML VIAL IV PRN (14:30)
[2024-09-29] MEDS ORDERED: NALOXONE HCL 0.4 MG/ML VIAL IV PRN (14:30)
[2024-09-29] MEDS ORDERED: BENZOCAINE/MENTHOL 1 LOZENGE PO PRN (15:07)
[2024-09-29] MEDS ORDERED: ROPIVACAINE HCL/PF 30 ML VIAL IJ ONE (15:14)
[2024-09-29] MEDS ORDERED: ceFAZolin 2 GM in DEXTROSE 5% IN WATER 50 ML IV SCH (15:15)
[2024-09-29] MEDS: ALBUMIN HUMAN 25 GM/100 ML BAG IV ONE (16:28)
[2024-09-29] MEDS: LACTATED RINGERS 1,000 ML IV SCH (16:38)
[2024-09-29] MEDS: SODIUM BICARBONATE 650 MG TABLET PO SCH (17:28)
[2024-09-29] MEDS: DOCUSATE SODIUM 100 MG CAPSULE PO SCH (21:51)
[2024-09-29] MEDS: ceFAZolin 1 GM VIAL IV SCH (21:51)
[2024-09-29] MEDS: Dorzolamide-Timolol 22.3-6.8 mg/mL drops OU SCH (21:51)
[2024-09-29] MEDS: TAMSULOSIN 0.4 MG CAPSULE PO SCH (21:51)
[2024-09-29] MEDS: BRIMONIDINE OPHTH DROPS 1 GTT BOTTLE 5ML OU SCH (21:51)
[2024-09-29] MEDS: RIFAXIMIN 550 MG TABLET PO SCH (21:51)
[2024-09-30] MEDS: VITAMIN D3 125 MCG TABLET PO SCH (08:22)
[2024-09-30] MEDS: oxyCODONE IR 5 MG TABLET PO PRN (08:23)
[2024-09-30] MEDS: MULTIVIT,THER IRON,CA,FA & MIN 1 TABLET PO SCH (08:23)
[2024-09-30] MEDS: LATANOPROST OPHTH DROPS 2.5ML BOTTLE OU SCH (08:24)
[2024-09-30] MEDS: ENOXAPARIN 40 MG/0.4 ML SYRINGE SQ SCH (08:24)
[2024-09-30 08:29] LABS: Basophils # (Auto) 0.01 K/mcL (0.00-0.30); Basophils % (Auto) 0.1 % (0.0-2.0); Eosinophils # (Auto) 0 K/mcL (0.00-0.70); Eosinophils % (Auto) 0 % (0.0-7.0); Hematocrit 33.3 % (40.1-51.0); Hemoglobin 10.7 g/dL (13.7-17.5); Lymphocytes # (Auto) 0.76 K/mcL (1.50-4.80); Lymphocytes % (Auto) 7.4 % (15.5-49.0); Mean Cell Volume 93.3 fL (80.0-100.0); Mean Corpuscular HGB Conc 32.1 g/dL (31.0-36.0); Mean Platelet Volume 10.1 fL (8.8-12.5); Monocytes # (Auto) 0.59 K/mcL (0.10-0.90); Monocytes % (Auto) 5.8 % (1.0-12.0); Neutrophils % (Auto) 86.5 % (38.0-78.0); Platelet Count 292 K/mcL (140-440); RBC 3.57 M/mcL (4.63-6.08); WBC 10.2 K/mcL (4.5-11.0)
[2024-09-30 08:55] LABS: ALT/SGPT 26 U/L (<40); AST/SGOT 37 U/L (<40); Albumin 3.3 gm/dL (3.2-5.2); Albumin/Globulin Ratio 1.1 (1.0-2.3); Alkaline Phosphatase 68 U/L (39-117); Bilirubin,Direct 0.3 mg/dL (<0.3); Bilirubin,Total 0.5 mg/dL (0.1-1.0); Blood Urea Nitrogen 34 mg/dL (8-23); Calcium 8.4 mg/dL (8.6-10.4); Carbon Dioxide 19 mmol/L (22-30); Chloride 102 mmol/L (96-108); Glomerular Filtration Rate 60; Glucose 218 mg/dL (70-105); Lactate Dehydrogenase 230 U/L (135-225); Phosphorous 3.2 mg/dL (2.5-4.5); Potassium 4.3 mmol/L (3.3-5.1); Sodium 136 mmol/L (133-145); Triglycerides 101 mg/dL (<150); Uric Acid 7.1 mg/dL (2.5-8.0)
[2024-09-30] MEDS ORDERED: APIXABAN 2.5 MG TABLET PO SCH (09:00)
[2024-09-30] MEDS: NICOTINE 21 MG PATCH TOPICAL SCH (21:26)
[2024-10-01 06:41] LABS: ALT/SGPT 33 U/L (<40); AST/SGOT 61 U/L (<40); Albumin 3.1 gm/dL (3.2-5.2); Albumin/Globulin Ratio 1.2 (1.0-2.3); Alkaline Phosphatase 64 U/L (39-117); Bilirubin,Direct 0.2 mg/dL (<0.3); Bilirubin,Total 0.5 mg/dL (0.1-1.0); Blood Urea Nitrogen 34 mg/dL (8-23); Calcium 8.2 mg/dL (8.6-10.4); Carbon Dioxide 21 mmol/L (22-30); Chloride 106 mmol/L (96-108); Globulin 2.6 gm/dL (2.2-3.7); Glomerular Filtration Rate 55; Glucose 95 mg/dL (70-105); Lactate Dehydrogenase 194 U/L (135-225); Potassium 4.4 mmol/L (3.3-5.1); Sodium 139 mmol/L (133-145); Triglycerides 98 mg/dL (<150); Uric Acid 7.1 mg/dL (2.5-8.0)
[2024-10-01] MEDS: HYDROcodone/APAP 5/325MG TABLET PO PRN (08:51)
[2024-10-01] MEDS: LACTULOSE 20 GM/30 ML ORAL.SOL PO SCH (09:01)
[2024-10-01] MEDS ORDERED: ONDANSETRON 4 MG ODT TABLET SL PRN (18:16)
[2024-10-02 06:34] LABS: ALT/SGPT 58 U/L (<40); AST/SGOT 80 U/L (<40); Albumin 3.3 gm/dL (3.2-5.2); Albumin/Globulin Ratio 1.2 (1.0-2.3); Alkaline Phosphatase 79 U/L (39-117); Bilirubin,Direct 0.2 mg/dL (<0.3); Bilirubin,Total 0.4 mg/dL (0.1-1.0); Blood Urea Nitrogen 28 mg/dL (8-23); Calcium 8.7 mg/dL (8.6-10.4); Carbon Dioxide 22 mmol/L (22-30); Chloride 105 mmol/L (96-108); Globulin 2.7 gm/dL (2.2-3.7); Glomerular Filtration Rate 67; Glucose 109 mg/dL (70-105); Lactate Dehydrogenase 221 U/L (135-225); Phosphorous 3.9 mg/dL (2.5-4.5); Potassium 4.6 mmol/L (3.3-5.1); Sodium 138 mmol/L (133-145); Triglycerides 138 mg/dL (<150); Uric Acid 6.2 mg/dL (2.5-8.0)
[2024-10-02] MEDS: ACETAMINOPHEN 325 MG TABLET PO PRN (23:31)
[2024-10-03 08:49] LABS: Basophils # (Auto) 0.02 K/mcL (0.00-0.30); Basophils % (Auto) 0.1 % (0.0-2.0); Eosinophils # (Auto) 0.13 K/mcL (0.00-0.70); Eosinophils % (Auto) 0.7 % (0.0-7.0); Hematocrit 37.2 % (40.1-51.0); Hemoglobin 11.9 g/dL (13.7-17.5); Lymphocytes # (Auto) 1.21 K/mcL (1.50-4.80); Lymphocytes % (Auto) 6.4 % (15.5-49.0); Mean Cell Volume 95.4 fL (80.0-100.0); Mean Platelet Volume 10.1 fL (8.8-12.5); Monocytes # (Auto) 0.95 K/mcL (0.10-0.90); Neutrophils % (Auto) 87.3 % (38.0-78.0); Platelet Count 298 K/mcL (140-440); Red Cell Distribution Width 14.2 % (11.5-14.5)
[2024-10-03 09:08] LABS: Blood Urea Nitrogen 25 mg/dL (8-23); Calcium 8.7 mg/dL (8.6-10.4); Carbon Dioxide 21 mmol/L (22-30); Chloride 98 mmol/L (96-108); Glomerular Filtration Rate 67; Glucose 105 mg/dL (70-105); Potassium 4.4 mmol/L (3.3-5.1); Sodium 132 mmol/L (133-145)
[2024-10-03 09:20] LABS: Band Neutrophils % 3 % (0-10); Eosinophils % (Manual) 2 % (0-7); Lymphocytes % 5 % (15-49); Monocytes % (Manual) 4 % (1-12); Platelet Estimate NORMAL (Normal); RBC Morphology NORMAL (Normal); Segmented Neutrophils % 86 % (38-78)
[2024-10-03 12:50] LABS: Appearance,Urine Clear (Clear); Bacteria,Urine Few /hpf (0); Bilirubin,Urine Negative (Negative); Color,Urine Yellow; Glucose,Urine (UA) Negative (Negative); Ketones,Urine Negative (Negative); Leukocyte Esterase,Urine Negative /uL (Negative); Mucus,Urine Few /hpf; Nitrate,Urine Negative (Negative); PH,Urine 7.5 (5.0-9.0); Protein,Urine 100 mg/dL (Negative); Sperm,Urine Present /hpf (Absent); Urine Blood Trace-lysed ery/mcL (Negative); Urine RBC 4 /hpf (0-3); Urine Squamous Epithelial Cell < 1 /hpf (0-4); Urine Transitional Epi Cells < 1 /hpf (0-2); Urine WBC 18 /hpf (0-4); Urobilinogen,Urine Normal
[2024-10-04 06:53] LABS: ALT/SGPT 48 U/L (<40); AST/SGOT 51 U/L (<40); Albumin 3.1 gm/dL (3.2-5.2); Albumin/Globulin Ratio 1.1 (1.0-2.3); Alkaline Phosphatase 114 U/L (39-117); Bilirubin,Direct 0.2 mg/dL (<0.3); Bilirubin,Total 0.4 mg/dL (0.1-1.0); Blood Urea Nitrogen 23 mg/dL (8-23); Calcium 8.6 mg/dL (8.6-10.4); Carbon Dioxide 20 mmol/L (22-30); Chloride 98 mmol/L (96-108); Globulin 2.8 gm/dL (2.2-3.7); Glomerular Filtration Rate 50; Glucose 127 mg/dL (70-105); Lactate Dehydrogenase 177 U/L (135-225); Phosphorous 3.8 mg/dL (2.5-4.5); Potassium 4.5 mmol/L (3.3-5.1); Sodium 131 mmol/L (133-145); Triglycerides 96 mg/dL (<150); Uric Acid 6.1 mg/dL (2.5-8.0)
[2024-10-04 06:57] LABS: Hematocrit 31.7 % (40.1-51.0); Hemoglobin 10.4 g/dL (13.7-17.5); Mean Corpuscular HGB Conc 32.8 g/dL (31.0-36.0); Mean Platelet Volume 10.1 fL (8.8-12.5); Platelet Count 294 K/mcL (140-440); RBC 3.41 M/mcL (4.63-6.08); Red Cell Distribution Width 13.9 % (11.5-14.5); WBC 13.8 K/mcL (4.5-11.0)
[2024-10-04 07:17] LABS: Band Neutrophils % 3 % (0-10); Eosinophils % (Manual) 1 % (0-7); Lymphocytes % 6 % (15-49); Monocytes % (Manual) 9 % (1-12); Platelet Estimate NORMAL (Normal); RBC Morphology NORMAL (Normal); Segmented Neutrophils % 81 % (38-78)
[2024-10-04] MEDS: SODIUM BICARBONATE 650 MG TABLET PO SCH (12:57)
[2024-10-04] MEDS: cefTRIAXone 2 GM in DEXTROSE 5% IN WATER 50 ML IV SCH (13:27)
[2024-10-04] MEDS: OMEPRAZOLE 20 MG CAPSULE PO SCH (17:23)
[2024-10-05 06:13] LABS: Basophils # (Auto) 0.03 K/mcL (0.00-0.30); Basophils % (Auto) 0.3 % (0.0-2.0); Eosinophils # (Auto) 0.02 K/mcL (0.00-0.70); Eosinophils % (Auto) 0.2 % (0.0-7.0); Hemoglobin 9.8 g/dL (13.7-17.5); Lymphocytes # (Auto) 1.01 K/mcL (1.50-4.80); Lymphocytes % (Auto) 9.7 % (15.5-49.0); Mean Cell Volume 92.9 fL (80.0-100.0); Mean Corpuscular HGB Conc 32.7 g/dL (31.0-36.0); Mean Platelet Volume 10.1 fL (8.8-12.5); Monocytes # (Auto) 1.25 K/mcL (0.10-0.90); Neutrophils % (Auto) 76.9 % (38.0-78.0); Platelet Count 277 K/mcL (140-440); RBC 3.23 M/mcL (4.63-6.08); Red Cell Distribution Width 14.1 % (11.5-14.5); WBC 10.5 K/mcL (4.5-11.0)
[2024-10-05 06:58] LABS: ALT/SGPT 54 U/L (<40); AST/SGOT 70 U/L (<40); Albumin 2.9 gm/dL (3.2-5.2); Albumin/Globulin Ratio 1.1 (1.0-2.3); Alkaline Phosphatase 109 U/L (39-117); Bilirubin,Direct < 0.2 mg/dL (0-0.3); Bilirubin,Total 0.2 mg/dL (0.1-1.0); Blood Urea Nitrogen 24 mg/dL (8-23); Calcium 8.5 mg/dL (8.6-10.4); Carbon Dioxide 18 mmol/L (22-30); Chloride 100 mmol/L (96-108); Globulin 2.6 gm/dL (2.2-3.7); Glomerular Filtration Rate 50; Glucose 129 mg/dL (70-105); Lactate Dehydrogenase 191 U/L (135-225); Phosphorous 4.2 mg/dL (2.5-4.5); Potassium 4.6 mmol/L (3.3-5.1); Sodium 134 mmol/L (133-145); Triglycerides 90 mg/dL (<150); Uric Acid 6.1 mg/dL (2.5-8.0)
[2024-10-05] MEDS: 0.9 % SODIUM CHLORIDE 500 ML IV ONE (11:42)
[2024-10-06 02:50] VITALS: O2SAT 100
[2024-10-06 06:32] LABS: Blood Urea Nitrogen 25 mg/dL (8-23); Calcium 8.1 mg/dL (8.6-10.4); Carbon Dioxide 20 mmol/L (22-30); Chloride 100 mmol/L (96-108); Glomerular Filtration Rate 50; Glucose 104 mg/dL (70-105); Potassium 4.6 mmol/L (3.3-5.1); Sodium 132 mmol/L (133-145)
[2024-10-06 07:38] VITALS: TEMP 98.1
== END 2024-10-06 12:03 | DRG 481 ==
LOC: ED 18:53 → MEDSUR 09-29 12:31
PROVIDERS: ADMIT Student in an Organized Health Care Education/Training Program; ATTEND Internal Medicine

== ENCOUNTER 2025-04-01 18:51 | Inpatient (IN) ==
[2025-04-01] MEDS: tiZANidine 4 MG TABLET PO ONE (20:26)
[2025-04-01 21:16] LABS: Basophils # (Auto) 0.04 K/mcL (0.00-0.30); Basophils % (Auto) 0.5 % (0.0-2.0); Eosinophils # (Auto) 0.16 K/mcL (0.00-0.70); Eosinophils % (Auto) 2.1 % (0.0-7.0); Hematocrit 35.2 % (40.1-51.0); Hemoglobin 11.4 g/dL (13.7-17.5); Lymphocytes # (Auto) 1.48 K/mcL (1.50-4.80); Lymphocytes % (Auto) 19.2 % (15.5-49.0); Mean Corpuscular HGB Conc 32.4 g/dL (31.0-36.0); Monocytes # (Auto) 0.44 K/mcL (0.10-0.90); Monocytes % (Auto) 5.7 % (1.0-12.0); Neutrophils % (Auto) 72.1 % (38.0-78.0); Platelet Count 249 K/mcL (140-440); RBC 3.81 M/mcL (4.63-6.08); WBC 7.7 K/mcL (4.5-11.0)
[2025-04-01 21:24] LABS: ALT/SGPT 31 U/L (<40); AST/SGOT 25 U/L (<40); Albumin 4.1 gm/dL (3.2-5.2); Albumin/Globulin Ratio 1.3 (1.0-2.3); Alkaline Phosphatase 101 U/L (39-117); Anion Gap 17.0 (8.0-16.0); Bilirubin,Total 0.3 mg/dL (0.1-1.0); Blood Urea Nitrogen 46 mg/dL (8-23); Calcium 9.1 mg/dL (8.6-10.4); Carbon Dioxide 17 mmol/L (22-30); Chloride 106 mmol/L (96-108); Globulin 3.1 gm/dL (2.2-3.7); Glucose 137 mg/dL (70-105); Potassium 4.2 mmol/L (3.3-5.1); Sodium 140 mmol/L (133-145)
[2025-04-01] MEDS ORDERED: METOCLOPRAMIDE 10 MG/2 ML VIAL IV PRN (22:07)
[2025-04-01] MEDS ORDERED: POTASSIUM CHLORIDE 20 MEQ TABLET PO PRN ×2 (22:07)
[2025-04-01] MEDS ORDERED: MAGNESIUM SULFATE 2 GM/50 ML BAG IV PRN (22:07)
[2025-04-01] MEDS ORDERED: IPRATROPIUM/ALBUTEROL 3 ML AMPUL.NEB NEB PRN (22:07)
[2025-04-01] MEDS ORDERED: ONDANSETRON 4 MG/2 ML VIAL IV PRN (22:07)
[2025-04-01] MEDS ORDERED: LACTULOSE 20 GM/30 ML ORAL.SOL PO PRN (22:07)
[2025-04-01] MEDS ORDERED: SENNOSIDES 1 TABLET PO PRN (22:07)
[2025-04-01] MEDS ORDERED: ACETAMINOPHEN 325 MG TABLET PO PRN (22:07)
[2025-04-01] MEDS ORDERED: POLYETHYLENE GLYCOL 3350 17 GM PACKET PO PRN (22:07)
[2025-04-01] MEDS ORDERED: POTASSIUM CHLORIDE 40 MEQ in DEXTROSE 5% IN WATER 500 ML IV PRN (22:07)
[2025-04-01] MEDS: LACTATED RINGERS 1,000 ML IV SCH (22:43)
[2025-04-01] MEDS: 0.9 % SODIUM CHLORIDE 10 ML SYRINGE IV SCH (22:43)
[2025-04-01] MEDS: SODIUM BICARBONATE 650 MG TABLET PO SCH (22:47)
[2025-04-02 02:45] LABS: Bilirubin,Urine Negative (Negative); Color,Urine Yellow; Glucose,Urine (UA) Negative (Negative); Ketones,Urine Negative (Negative); Leukocyte Esterase,Urine Negative /uL (Negative); Mucus,Urine FEW /hpf; PH,Urine 5.5 (5.0-9.0); Protein,Urine 30 mg/dL (Negative); Specific Gravity,Urine 1.015 (1.000-1.035); Urobilinogen,Urine Normal
[2025-04-02 05:47] LABS: Basophils # (Auto) 0.02 K/mcL (0.00-0.30); Basophils % (Auto) 0.1 % (0.0-2.0); Eosinophils # (Auto) 0.03 K/mcL (0.00-0.70); Eosinophils % (Auto) 0.2 % (0.0-7.0); Hematocrit 31.3 % (40.1-51.0); Hemoglobin 10.1 g/dL (13.7-17.5); Lymphocytes # (Auto) 0.99 K/mcL (1.50-4.80); Lymphocytes % (Auto) 7.4 % (15.5-49.0); Mean Corpuscular HGB Conc 32.3 g/dL (31.0-36.0); Monocytes # (Auto) 0.83 K/mcL (0.10-0.90); Monocytes % (Auto) 6.2 % (1.0-12.0); Neutrophils % (Auto) 86.0 % (38.0-78.0); Platelet Count 215 K/mcL (140-440); RBC 3.32 M/mcL (4.63-6.08); WBC 13.4 K/mcL (4.5-11.0)
[2025-04-02 06:02] LABS: ALT/SGPT 26 U/L (<40); AST/SGOT 22 U/L (<40); Albumin 3.8 gm/dL (3.2-5.2); Albumin/Globulin Ratio 1.5 (1.0-2.3); Alkaline Phosphatase 89 U/L (39-117); Anion Gap 14.0 (8.0-16.0); Bilirubin,Direct < 0.2 mg/dL (0-0.3); Bilirubin,Total 0.4 mg/dL (0.1-1.0); Blood Urea Nitrogen 44 mg/dL (8-23); Calcium 8.7 mg/dL (8.6-10.4); Carbon Dioxide 19 mmol/L (22-30); Chloride 106 mmol/L (96-108); Globulin 2.6 gm/dL (2.2-3.7); Glucose 123 mg/dL (70-105); Phosphorous 3.0 mg/dL (2.5-4.5); Potassium 4.3 mmol/L (3.3-5.1); Sodium 139 mmol/L (133-145); Triglycerides 65 mg/dL (<150); Uric Acid 6.9 mg/dL (2.5-8.0)
[2025-04-02] MEDS ORDERED: PROPOFOL 200 MG/20 ML VIAL IV ONE (12:00)
[2025-04-02] MEDS ORDERED: LIDOCAINE 2% PF 5 ML VIAL ONE (12:00)
[2025-04-02] MEDS ORDERED: DEXAMETHASONE 10 MG/ML VIAL ONE (12:00)
[2025-04-02] MEDS ORDERED: ONDANSETRON 4 MG/2 ML VIAL ONE (12:00)
[2025-04-02] MEDS ORDERED: PHENYLephrine 1 MG/10 ML SYRINGE (ANEST) ONE (13:15)
[2025-04-02] MEDS ORDERED: diphenhydrAMINE 50 MG/ML VIAL IV PRN (13:50)
[2025-04-02] MEDS ORDERED: ONDANSETRON 4 MG/2 ML VIAL IV PRN (13:50)
[2025-04-02] MEDS ORDERED: MEPERIDINE 25 MG/ML VIAL IV PRN (13:50)
[2025-04-02] MEDS ORDERED: METHOCARBAMOL 1,000 MG/10 ML VIAL IV PRN (13:50)
[2025-04-02] MEDS ORDERED: LACTATED RINGERS 250 ML IV PRN (13:50)
[2025-04-02] MEDS ORDERED: IPRATROPIUM/ALBUTEROL 3 ML AMPUL.NEB NEB PRN (13:50)
[2025-04-02] MEDS ORDERED: fentaNYL 100 MCG/2 ML VIAL IV PRN (13:50)
[2025-04-02] MEDS ORDERED: NALOXONE HCL 0.4 MG/ML VIAL IV PRN (13:50)
[2025-04-02] MEDS ORDERED: POLYETHYLENE GLYCOL 3350 17 GM PACKET PO PRN (14:09)
[2025-04-02] MEDS ORDERED: FLEETS ADULT 1 DOSE ENEMA PR PRN (14:09)
[2025-04-02] MEDS ORDERED: HYDROcodone/APAP 10/325MG TABLET PO PRN (14:09)
[2025-04-02] MEDS ORDERED: MAGNESIUM HYDROXIDE 30 ML ORAL.SUSP PO PRN (14:09)
[2025-04-02] MEDS ORDERED: ONDANSETRON 4 MG ODT TABLET SL PRN (14:09)
[2025-04-02] MEDS ORDERED: BISACODYL 10 MG SUPP.RECT PR PRN (14:09)
[2025-04-02] MEDS ORDERED: BENZOCAINE/MENTHOL 1 LOZENGE PO PRN (14:09)
[2025-04-02] MEDS ORDERED: METHOCARBAMOL 750 MG TABLET PO PRN (14:09)
[2025-04-02] MEDS ORDERED: ceFAZolin 2 GM in DEXTROSE 5% IN WATER 50 ML IV SCH (15:00)
[2025-04-02] MEDS: LACTATED RINGERS 1,000 ML IV SCH (15:14)
[2025-04-02] MEDS: TRANEXAMIC ACID 1,000 MG/10 ML VIAL IV ONE (15:35)
[2025-04-02] MEDS: BRIMONIDINE OPHTH DROPS 1 GTT BOTTLE 5ML OU SCH (16:17)
[2025-04-02] MEDS: LATANOPROST OPHTH DROPS 2.5ML BOTTLE OU SCH (16:18)
[2025-04-02] MEDS: LACTULOSE 20 GM/30 ML ORAL.SOL PO SCH (16:31)
[2025-04-02] MEDS: OMEPRAZOLE 20 MG CAPSULE PO SCH (16:33)
[2025-04-02] MEDS: LACTOBACILLUS 1 CAPSULE PO SCH (16:33)
[2025-04-02] MEDS: RIFAXIMIN 550 MG TABLET PO SCH (16:33)
[2025-04-02] MEDS: DOCUSATE SODIUM 100 MG CAPSULE PO SCH (16:34)
[2025-04-02] MEDS: SODIUM BICARBONATE 650 MG TABLET PO SCH (20:14)
[2025-04-02] MEDS: ASPIRIN 81 MG TAB.CHEW PO SCH (20:14)
[2025-04-02] MEDS: SENNOSIDES 1 TABLET PO SCH (20:15)
[2025-04-02] MEDS: TAMSULOSIN 0.4 MG CAPSULE PO SCH (20:15)
[2025-04-02] MEDS ORDERED: DOCUSATE SODIUM 100 MG CAPSULE PO SCH (21:00)
[2025-04-03 05:56] LABS: Basophils # (Auto) 0.01 K/mcL (0.00-0.30); Basophils % (Auto) 0.1 % (0.0-2.0); Eosinophils # (Auto) 0 K/mcL (0.00-0.70); Eosinophils % (Auto) 0 % (0.0-7.0); Hematocrit 27.5 % (40.1-51.0); Hemoglobin 9.1 g/dL (13.7-17.5); Lymphocytes # (Auto) 0.97 K/mcL (1.50-4.80); Lymphocytes % (Auto) 9.5 % (15.5-49.0); Mean Corpuscular HGB Conc 33.1 g/dL (31.0-36.0); Monocytes # (Auto) 0.89 K/mcL (0.10-0.90); Monocytes % (Auto) 8.7 % (1.0-12.0); Neutrophils % (Auto) 81.5 % (38.0-78.0); Platelet Count 203 K/mcL (140-440); RBC 2.98 M/mcL (4.63-6.08); WBC 10.2 K/mcL (4.5-11.0)
[2025-04-03 06:27] LABS: ALT/SGPT 21 U/L (<40); AST/SGOT 24 U/L (<40); Albumin 3.3 gm/dL (3.2-5.2); Albumin/Globulin Ratio 1.2 (1.0-2.3); Alkaline Phosphatase 79 U/L (39-117); Anion Gap 13.0 (8.0-16.0); Bilirubin,Direct < 0.2 mg/dL (0-0.3); Bilirubin,Total 0.3 mg/dL (0.1-1.0); Blood Urea Nitrogen 35 mg/dL (8-23); Calcium 8.5 mg/dL (8.6-10.4); Carbon Dioxide 20 mmol/L (22-30); Chloride 106 mmol/L (96-108); Globulin 2.8 gm/dL (2.2-3.7); Glucose 154 mg/dL (70-105); Phosphorous 3.3 mg/dL (2.5-4.5); Potassium 4.2 mmol/L (3.3-5.1); Sodium 139 mmol/L (133-145); Triglycerides 48 mg/dL (<150); Uric Acid 6.5 mg/dL (2.5-8.0)
[2025-04-03] MEDS: SODIUM BICARBONATE 650 MG TABLET PO SCH (09:01)
[2025-04-04 13:47] VITALS: TEMP 98.3; O2SAT 96
== END 2025-04-04 13:20 | DRG 481 ==
LOC: ED 18:51 → MEDSUR 22:09
PROVIDERS: ADMIT Internal Medicine; ATTEND Internal Medicine